=== PATIENT | male | born 1950 | race Asian ===

== ENCOUNTER 2022-01-07 02:14 | Inpatient (IN) | payer OTHER ==
[~2022-01-07] VITALS: Ht 170.2 cm; Wt 84.4 kg
[2022-01-07] VITALS (41 sets, daily range): BP systolic 88–153; BP diastolic 36–96
[2022-01-07] MEDS ORDERED: ASPIRIN 81MG TABLET PO ONE (02:30)
[2022-01-07] MEDS ORDERED: NITROGLYCERIN 0.4MG TABLET SL SL PRN (02:30)
[2022-01-07 03:21] LABS: HEMOGLOBIN. 7.1 g/dL (14.0-18.0); MEAN CORPUSCULAR HEMOGLOBIN 31.9 pg (28.0-32.0); MEAN CORPUSCULAR VOLUME 94.5 fL (80.0-94.0); MEAN PLATELET VOLUME 8.9 fl (7.4-10.4); PLATELET 270 x1000/uL (130-400); RED BLOOD CELL COUNT 2.22 mill/uL (4.7-6.1); RED CELL DISTRIBUTION WIDTH 13.1 % (11.6-14.6)
[2022-01-07 03:34] LABS: CHLORIDE 93 mEq/L (98-107)
[2022-01-07] MEDS ORDERED: FUROSEMIDE 100MG/10ML VIAL IV SCH (03:37)
[2022-01-07 03:38] LABS: ETHANOL BLOOD < 10 mg/dL
[2022-01-07] MEDS ORDERED: SODIUM BICARBONATE 8.4% 1 MEQ/ML 50ML SYR IV SCH (03:45)
[2022-01-07] MEDS ORDERED: DEXTROSE 50% WATER 50ML SYRINGE IV SCH (03:45)
[2022-01-07] MEDS ORDERED: INSULIN REGULAR (HUMULIN R) 300UNITS/3ML VIAL IV SCH (03:45)
[2022-01-07] MEDS ORDERED: CALCIUM CHLORIDE 1GM/10ML SYR IV SCH (03:45)
[2022-01-07] MEDS ORDERED: ALBUTEROL (0.083%) 2.5MG/3ML NEB HHN SCH (03:45)
[2022-01-07] MEDS ORDERED: SODIUM CHLORIDE 0.9% 1,000 ML IV ONE (04:00)
[2022-01-07] MEDS ORDERED: PANTOPRAZOLE SODIUM 40 MG/VIAL IV SCH (04:00)
[2022-01-07 05:43] LABS: HEMATOCRIT. 20.9 % (42.0-52.0)
[2022-01-07] MEDS ORDERED: MAGNESIUM/ALUMINUM HYDROXIDE/SIMETHICONE 30ML UDC PO PRN (07:15)
[2022-01-07] MEDS ORDERED: ACETAMINOPHEN 325MG TABLET PO PRN ×2 (07:15)
[2022-01-07] MEDS ORDERED: GUAIFENESIN 200MG/10ML SUGAR FREE UDC PO PRN (07:15)
[2022-01-07] MEDS ORDERED: ONDANSETRON HCL 4MG/2ML INJ IV PRN (07:15)
[2022-01-07] MEDS ORDERED: IPRATROPIUM/ALBUTEROL 0.5-3(2.5)MG/3ML NEB NEB PRN (07:15)
[2022-01-07] MEDS ORDERED: SODIUM CHLORIDE 0.9% 1,000 ML IV SCH (07:15)
[2022-01-07] MEDS ORDERED: CLONIDINE 0.1MG TABLET PO PRN (07:15)
[2022-01-07 07:40] LABS: PLATELET ESTIMATE NORMAL
[2022-01-07 07:42] LABS: T4 FREE 0.6 ng/dL (0.76-1.46)
[2022-01-07] MEDS ORDERED: PANTOPRAZOLE 80 MG in SODIUM CHLORIDE 0.9% 100 ML IV SCH ×4 (08:00)
[2022-01-07] MEDS ORDERED: SODIUM BICARBONATE 8.4% 1 MEQ/ML 50ML SYR IV NR (08:30)
[2022-01-07] MEDS ORDERED: SODIUM POLYSTYRENE SULFONATE 15 G/60 ML BOT PO NR (08:30)
[2022-01-07 08:47] LABS: BG CARBOXYHEMOGLOBIN 0.3 % (0.5-1.5); BG DEOXYHEMOGLOBIN 6.6 % (0.0-5.0); BG HCO3 ACT 3.7 mmol/L (22.0-26.0); BG METHEMOGLOBIN 0.3 % (0.0-1.5); BG OXYGEN SATURATION 93.4 % (92.0-98.5); BG OXYHEMOGLOBIN 92.8 % (94.0-97.0); BG PCO2 18.3 mmHg (35.0-45.0); BG PH 6.918 (7.350-7.450); BG PO2 98.9 mmHg (75.0-100.0); BG SAMPLE SITE RIGHT RADIAL; BG TOTAL HEMOGLOBIN 8.1 g/dL (12.0-18.0); BG VENT MODE MASK - NRB
[2022-01-07] MEDS ORDERED: FUROSEMIDE 100MG/10ML VIAL IVP NR (09:00)
[2022-01-07] MEDS ORDERED: SODIUM BICARBONATE 150 MEQ in DEXTROSE 5% WATER 1,000 ML IV ONE (09:00)
[2022-01-07 09:48] LABS: PARTIAL THROMBOPLASTIN TIME 26.5 sec (23.4-31.0); PROTHROMBIN TIME 11.2 sec (9.6-11.0)
[2022-01-07 09:56] LABS: HAPTOGLOBIN 247 mg/dL (30-200)
[2022-01-07 10:04] LABS: CREATINE KINASE 2735 IU/L (39-308)
[2022-01-07] MEDS ORDERED: LIDOCAINE HCL 1% 10 MG/ML 10ML VIAL ONE (10:18)
[2022-01-07 12:09] LABS: FOLIC ACID (FOLATE) SERUM 15.2 ng/mL (>5.38)
[2022-01-07 12:47] LABS: CORTISOL 42.3 ucg/dL
[2022-01-07 12:58] LABS: HEPATITIS B SURFACE ANTIGEN NEGATIVE
[2022-01-07 15:09] LABS: CLARITY URINE CLEAR (CLEAR); COLOR URINE YELLOW (YELLOW); KETONES URINE NEGATIVE (NEGATIVE); LEUKOCYTE ESTERASE URINE NEGATIVE (NEGATIVE); NITRITE URINE NEGATIVE (NEGATIVE); OCCULT BLOOD URINE 2+ (NEGATIVE); PROTEIN URINE 1+ (NEGATIVE); SPECIFIC GRAVITY URINE 1.012 (1.005-1.030); UROBILINOGEN URINE 0.2 E.U./dL (0.2-1.0)
[2022-01-07 16:37] LABS: BG BASE EXCESS -4.6 mmol/L (-2.0-2.0); BG CARBOXYHEMOGLOBIN 0.3 % (0.5-1.5); BG DEOXYHEMOGLOBIN 1.7 % (0.0-5.0); BG FRACTION INSPIRED OXYGEN 100; BG HCO3 ACT 17.2 mmol/L (22.0-26.0); BG METHEMOGLOBIN 0.2 % (0.0-1.5); BG OXYGEN SATURATION 98.3 % (92.0-98.5); BG OXYHEMOGLOBIN 97.8 % (94.0-97.0); BG PH 7.531 (7.350-7.450); BG PO2 143.3 mmHg (75.0-100.0); BG SAMPLE SITE RIGHT RADIAL; BG TOTAL HEMOGLOBIN 7.9 g/dL (12.0-18.0); BG VENT MODE MASK - NRB
[2022-01-07] MEDS ORDERED: VANCOMYCIN 2,000 MG in DEXT 5% WATER 500 ML IV NR (17:00)
[2022-01-07] MEDS: FUROSEMIDE 100MG/10ML VIAL IVP SCH (17:49)
[2022-01-07] MEDS: PIPERACILLIN/TAZOBACTAM 3.375 G in DEXTROSE 5% WATER 50 ML IV SCH (17:49)
[2022-01-07 20:11] LABS: MEAN CORPUSCULAR HEMOGLOBIN 30.2 pg (28.0-32.0); MEAN CORPUSCULAR VOLUME 87.3 fL (80.0-94.0); MEAN PLATELET VOLUME 9.1 fl (7.4-10.4); PLATELET 158 x1000/uL (130-400); RED BLOOD CELL COUNT 2.38 mill/uL (4.7-6.1); RED CELL DISTRIBUTION WIDTH 14.2 % (11.6-14.6)
[2022-01-07 20:17] LABS: HEMATOCRIT. 20.8 % (42.0-52.0); HEMOGLOBIN. 7.2 g/dL (14.0-18.0)
[2022-01-07] MEDS ORDERED: KCL 20MEQ/100ML PREMIX 100 ML IV NR (21:00)
[2022-01-07] MEDS ORDERED: EPOETIN ALFA-EPBX 10,000 UNIT/ML VIAL SUBCUT SCH (21:00)
[2022-01-07 22:24] LABS: PLATELET ESTIMATE NORMAL
[2022-01-08] VITALS (86 sets, daily range): BP systolic 56–165; BP diastolic 38–101
[2022-01-08] MEDS: PIPERACILLIN/TAZOBACTAM 3.375 G in DEXTROSE 5% WATER 50 ML IV SCH ×2 (05:23→20:46)
[2022-01-08 06:19] LABS: HEMATOCRIT. 23.1 % (42.0-52.0); HEMOGLOBIN. 8.2 g/dL (14.0-18.0); MEAN CORPUSCULAR HEMOGLOBIN 30.4 pg (28.0-32.0); MEAN CORPUSCULAR VOLUME 85.6 fL (80.0-94.0); MEAN PLATELET VOLUME 8.6 fl (7.4-10.4); PLATELET 148 x1000/uL (130-400)
[2022-01-08 06:31] LABS: CHLORIDE 92 mEq/L (98-107)
[2022-01-08 06:40] LABS: PHOSPHORUS 7.7 mg/dL (2.5-4.9)
[2022-01-08] MEDS: ASPIRIN 81MG TABLET PO SCH (09:00)
[2022-01-08] MEDS: FUROSEMIDE 100MG/10ML VIAL IVP SCH ×3 (09:00→17:52)
[2022-01-08] MEDS ORDERED: POTASSIUM CHLORIDE INJ 40 MEQ in DEXT 5% WATER 250 ML IV ONE (09:00)
[2022-01-08] MEDS: KCL 20MEQ/100ML X 2 FOR TOTAL KCL 40MEQ/200ML IV SCH ×2 (10:11→12:10)
[2022-01-08 11:28] LABS: BG BASE EXCESS 4.3 mmol/L (-2.0-2.0); BG CARBOXYHEMOGLOBIN 0.2 % (0.5-1.5); BG DEOXYHEMOGLOBIN 1.4 % (0.0-5.0); BG FRACTION INSPIRED OXYGEN 100; BG HCO3 ACT 26.5 mmol/L (22.0-26.0); BG METHEMOGLOBIN 0.8 % (0.0-1.5); BG OXYGEN SATURATION 98.6 % (92.0-98.5); BG OXYHEMOGLOBIN 97.6 % (94.0-97.0); BG PCO2 30.2 mmHg (35.0-45.0); BG PH 7.561 (7.350-7.450); BG PO2 273.8 mmHg (75.0-100.0); BG SAMPLE SITE LEFT RADIAL; BG TOTAL HEMOGLOBIN 8.7 g/dL (12.0-18.0); BG VENT MODE MASK - NRB
[2022-01-08 14:52] LABS: SODIUM URINE RANDOM 43 mEq/L
[2022-01-08 14:58] LABS: *AMPHETAMINES SCREEN URINE NEGATIVE (NEGATIVE); *BARBITURATES SCREEN URINE NEGATIVE (NEGATIVE); *BENZODIAZEPINES SCREEN URINE NEGATIVE (NEGATIVE); *COCAINE SCREEN URINE NEGATIVE (NEGATIVE)
[2022-01-08 14:59] LABS: CANNABINOID URINE SCREEN NEGATIVE (NEGATIVE); METHADONE URINE SCREEN NEGATIVE (NEGATIVE); OPIATES URINE SCREEN NEGATIVE (NEGATIVE); PHENCYCLIDINE URINE SCREEN NEGATIVE (NEGATIVE)
[2022-01-08] MEDS: CALCIUM GLUCONATE 1GM PREMIX 50 ML IV SCH ×2 (15:00→23:00)
[2022-01-08 16:49] LABS: PLATELET ESTIMATE NORMAL
[2022-01-09] VITALS (46 sets, daily range): BP systolic 99–158; BP diastolic 40–108
[2022-01-09 06:11] LABS: HEMATOCRIT. 24.5 % (42.0-52.0); HEMOGLOBIN. 8.8 g/dL (14.0-18.0); MEAN CORPUSCULAR HEMOGLOBIN 31.3 pg (28.0-32.0); MEAN CORPUSCULAR VOLUME 86.9 fL (80.0-94.0); MEAN PLATELET VOLUME 9.3 fl (7.4-10.4); PLATELET 140 x1000/uL (130-400); RED BLOOD CELL COUNT 2.81 mill/uL (4.7-6.1); RED CELL DISTRIBUTION WIDTH 15.8 % (11.6-14.6)
[2022-01-09 06:40] LABS: CHLORIDE 99 mEq/L (98-107)
[2022-01-09 08:12] LABS: CREATINE KINASE 2081 IU/L (39-308)
[2022-01-09 09:06] LABS: BG BASE EXCESS -1.3 mmol/L (-2.0-2.0); BG CARBOXYHEMOGLOBIN 0.3 % (0.5-1.5); BG DEOXYHEMOGLOBIN 3.7 % (0.0-5.0); BG FRACTION INSPIRED OXYGEN 28; BG METHEMOGLOBIN 0.1 % (0.0-1.5); BG OXYGEN SATURATION 96.3 % (92.0-98.5); BG OXYHEMOGLOBIN 95.9 % (94.0-97.0); BG PCO2 36.3 mmHg (35.0-45.0); BG PH 7.419 (7.350-7.450); BG PO2 91.8 mmHg (75.0-100.0); BG SAMPLE SITE RIGHT RADIAL; BG TOTAL HEMOGLOBIN 8.4 g/dL (12.0-18.0); BG VENT MODE NASAL CANNULA
[2022-01-09] MEDS ORDERED: HEPARIN SODIUM 1,000 UNIT/1ML VIAL IV SCH (09:30)
[2022-01-09] MEDS ORDERED: METOPROLOL TARTRATE 25MG TABLET PO SCH (09:30)
[2022-01-09 09:46] LABS: PHOSPHORUS 8.9 mg/dL (2.5-4.9)
[2022-01-09] MEDS: ASPIRIN 81MG TABLET PO SCH (11:35)
[2022-01-09] MEDS: PIPERACILLIN/TAZOBACTAM 3.375 G in DEXTROSE 5% WATER 50 ML IV SCH (11:35)
[2022-01-09] MEDS: FUROSEMIDE 100MG/10ML VIAL IVP SCH (11:35)
[2022-01-09] MEDS: CALCIUM GLUCONATE 1GM PREMIX 50 ML IV SCH (11:36)
[2022-01-09 12:43] LABS: PLATELET ESTIMATE NORMAL
[2022-01-09] MEDS: SEVELAMER CARBONATE 800 MG TABLET PO SCH ×2 (13:59→18:57)
[2022-01-09] MEDS ORDERED: CALCIUM 1250MG TABLET (500MG ELEMENTAL CALCIUM) PO SCH (14:00)
[2022-01-09 15:50] LABS: INR 1.1; PROTHROMBIN TIME 11.3 sec (9.6-11.0)
[2022-01-10 09:06] LABS: GLOMERULAR BASEMENT MEMB AB 13 units (0-20)
[2022-01-10 12:12] LABS: ANTI-MYELOPEROXIDASE AB < 9.0 U/mL (0.0-9.0); ANTI-PROTEINASE 3 ABS < 3.5 U/mL (0.0-3.5)
[2022-01-10 14:45] LABS: HEPATITIS B SURFACE AB < 3.1 mIU/mL
== END 2022-01-09 22:00 | disposition short-term general hospital (02) | DRG 871 ==
LOC: ER 02:14 → CVICU 04:15
PROVIDERS: ADMIT Internal Medicine; ATTEND Internal Medicine
PROC: 02HV33Z Insertion of Infusion Device into Superior Vena Cava, Percutaneous Approach (ICD-10-PCS; principal; 2022-01-07)
PROC: B548ZZA Ultrasonography of Superior Vena Cava, Guidance (ICD-10-PCS; 2022-01-07)
PROC: 30233N1 Transfusion of Nonautologous Red Blood Cells into Peripheral Vein, Percutaneous Approach (ICD-10-PCS; 2022-01-07)
PROC: 5A1D70Z Performance of Urinary Filtration, Intermittent, Less than 6 Hours Per Day (ICD-10-PCS; 2022-01-08)
PROC: 5A1D70Z Performance of Urinary Filtration, Intermittent, Less than 6 Hours Per Day (ICD-10-PCS; 2022-01-09)
DX: A41.9 Sepsis, unspecified organism (principal); G92.8 Other toxic encephalopathy; I21.4 Non-ST elevation (NSTEMI) myocardial infarction; N17.0 Acute kidney failure with tubular necrosis; J96.01 Acute respiratory failure with hypoxia; J18.9 Pneumonia, unspecified organism; N18.6 End stage renal disease; I50.43 Acute on chronic combined systolic (congestive) and diastolic (congestive) heart failure; E87.1 Hypo-osmolality and hyponatremia; I13.2 Hypertensive heart and chronic kidney disease with heart failure and with stage 5 chronic kidney disease, or end stage renal disease; M62.82 Rhabdomyolysis; J91.8 Pleural effusion in other conditions classified elsewhere; R65.20 Severe sepsis without septic shock; E87.5 Hyperkalemia; D53.9 Nutritional anemia, unspecified; E11.22 Type 2 diabetes mellitus with diabetic chronic kidney disease; E78.00 Pure hypercholesterolemia, unspecified; E86.1 Hypovolemia; E87.6 Hypokalemia; R74.01 Elevation of levels of liver transaminase levels; Z20.822 Contact with and (suspected) exposure to COVID-19; Z82.49 Family history of ischemic heart disease and other diseases of the circulatory system
CPT/HCPCS: 36415; 36556; 36600; 71045; 71250; 76770; 76937; 80048; 80053; 80061; 80076; 80202; 80305; 80320; 81003; 82140; 82270; 82306; 82330; 82375; 82533; 82550; 82607; 82728; 82746; 82805; 82962; 83010; 83036; 83520; 83540; 83550; 83605; 83615; 83735; 83880; 83935; 83970; 84100; 84145; 84300; 84439; 84443; 84484; 85025; 85044; 86256; 86705; 86706; 86709; 86803; 86850; 86900; 86920; 87340; 87426; 93005; 93306; 93970; 94644; 99291; C1752; C9113; J0610; J0885; J1644; J1815; J1940; J2543; J3370; J3480; J3490; J7030; J7040; J7050; J7060; J7070; P9016; A4315; G0480